=== PATIENT | female | born 1980 | race Caucasian/White ===

== ENCOUNTER 2023-05-29 16:32 | Inpatient (IN) | payer BC, OTHER ==
[~2023-05-29] VITALS: Ht 170.2 cm; Wt 89.4 kg
[2023-05-29] MEDS ORDERED: insulin SQ (20:52)
[2023-05-29] MEDS ORDERED: METF-1211 PO (20:52)
[2023-05-29 21:26] LABS: COVID AG,FIA SOURCE NASAL SWAB
[2023-05-29 21:35] LABS: EOSINOPHILS % (AUTO) 1.4 % (1.0-6.0); HEMATOCRIT 42.4 % (36-46); HEMOGLOBIN 14.2 g/dL (12.0-16.0); LYMPHOCYTES # (AUTO) 2.4 K/uL (1.0-4.8); LYMPHOCYTES % (AUTO) 20.2 % (22.0-44.0); MEAN CORPUSCULAR HEMOGLOBIN 29.8 pg (26.0-34.0); MEAN CORPUSCULAR HGB CONC 33.5 G/dL (31.0-37.0); MEAN CORPUSCULAR VOLUME 89 fL (80-100); MONOCYTES # (AUTO) 0.6 K/uL (0.1-1.0); MONOCYTES % (AUTO) 5.1 % (2.0-9.0); NEUTROPHILS # (AUTO) 8.5 K/uL (1.8-7.7); NEUTROPHILS % (AUTO) 72.3 % (40.0-70.0); PLATELET COUNT (AUTO) 340 K/uL (150-450); RED BLOOD CELL COUNT(AUTO) 4.76 MIL/uL (4.00-5.20); WHITE BLOOD COUNT (AUTO) 11.8 K/uL (4.5-11.0)
[2023-05-29 21:37] LABS: ALCOHOL, URINE DRUG SCREEN NEGATIVE (NEGATIVE); AMPHET/METH SCREEN,URINE POSITIVE (NEGATIVE); BARBITURATE SCREEN, URINE NEGATIVE (NEGATIVE); BENZODIAZEPINES SCREEN,URINE NEGATIVE (NEGATIVE); CANNABINOID SCREEN,URINE NEGATIVE (NEGATIVE); COCAINE SCREEN,URINE NEGATIVE (NEGATIVE); METHADONE SCREEN, URINE NEGATIVE (NEGATIVE); OPIATE SCREEN,URINE NEGATIVE (NEGATIVE); PHENCYCLIDINE SCREEN,URINE NEGATIVE (NEGATIVE)
[2023-05-29 21:46] LABS: ANION GAP 4 mmol/L (8-16); CALCIUM, TOTAL 8.9 mg/dL (8.8-10.5); CARBON DIOXIDE 31 mmol/L (22-29); CHLORIDE 98 mmol/L (98-107); CREATININE 0.57 mg/dL (0.60-1.30); GLOMERULAR FILTR. RATE CALC > 60 mL/min (>60); GLUCOSE,RANDOM 295 mg/dL (70-110); POTASSIUM 4.1 mmol/L (3.5-5.1); SODIUM SERUM 133 mmol/L (136-145); UREA NITROGEN, BLOOD 11 mg/dL (7-18)
[2023-05-29 21:48] LABS: ALCOHOL, BLOOD (SERUM) < 3 mg/dL (0-10)
[2023-05-29 21:48] LABS: SARS-COV2 (COVID) ANTIGEN,FIA Negative (Negative)
[2023-05-29 21:57] LABS: ALANINE AMINOTRANSFERASE 16 U/L (12-78); ALKALINE PHOSPHATASE 177 U/L (46-116); ASPARTATE AMINOTRANSFERASE 10 U/L (15-37); BILIRUBIN,TOTAL 0.5 mg/dL (0.1-1.0); HCG,QUANTITATIVE < 1 mIU/mL (0-6); TOTAL PROTEIN, SERUM 6.8 g/dL (6.4-8.2)
[2023-05-29 22:21] LABS: GLUCOMETER DEV NAME(LOC) ERT.5; GLUCOSE,POINT OF CARE 278 MG/DL (70-110)
[2023-05-29] MEDS ORDERED: LOPERAMIDE HCL 2 MG/15 ML SUSPENSION UDCUP PO PRN (22:30)
[2023-05-29] MEDS ORDERED: LORazepam 1 MG TABLET PO PRN (22:30)
[2023-05-29] MEDS ORDERED: IBUPROFEN 600 MG TABLET PO PRN (22:30)
[2023-05-29] MEDS ORDERED: HydrOXYzine PAMOATE 50 MG CAPSULE PO PRN (22:30)
[2023-05-29] MEDS ORDERED: CloNIDine HCL 0.1 MG TABLET PO PRN ×2 (22:30)
[2023-05-29] MEDS ORDERED: BISACODYL 10 MG RECTAL RECTAL SUPPOSITORY PR PRN (22:30)
[2023-05-29] MEDS ORDERED: TraZODone HCL 50 MG TABLET PO PRN (22:30)
[2023-05-29] MEDS ORDERED: IPRATROPIUM BROMIDE 0.5 MG/2.5 ML NEB SOLUTION NEB PRN (22:30)
[2023-05-29] MEDS ORDERED: BACLOFEN 10 MG TABLET PO PRN (22:30)
[2023-05-29] MEDS ORDERED: ACETAMINOPHEN 325 MG TABLET PO PRN (22:30)
[2023-05-29] MEDS ORDERED: DEXTROSE 50%-WATER 25 GM/50 ML SYRINGE IVP PRN (22:30)
[2023-05-29] MEDS ORDERED: MAG HYDROX/AL HYDROX/SIMETH ES 30 ML SUSPENSION UDCUP PO PRN ×2 (22:30)
[2023-05-29] MEDS ORDERED: PROMETHAZINE HCL 25 MG TABLET PO PRN (22:30)
[2023-05-29] MEDS ORDERED: MAGNESIUM HYDROXIDE SUSPENSION 30 ML UDCUP PO PRN (22:30)
[2023-05-29] MEDS ORDERED: ALBUTEROL SULFATE 2.5 MG/0.5 ML NEB SOLUTION NEB PRN (22:30)
[2023-05-29] MEDS ORDERED: DICYCLOMINE HCL 10 MG CAPSULE PO PRN (22:30)
[2023-05-29] MEDS ORDERED: ONDANSETRON HCL 4 MG/2 ML VIAL IVP PRN (22:30)
[2023-05-30] MEDS: SODIUM CHLORIDE 0.45% 1,000 ML IV SCH ×2 (00:17→11:26)
[2023-05-30] MEDS: HEPARIN SODIUM,PORCINE 5,000 UNITS/ML VIAL SQ SCH ×4 (00:18→23:09)
[2023-05-30 00:25] VITALS: BP 141/79; PULSE 90; RESP 20; TEMP 98.2
[2023-05-30] MEDS: ZOLPIDEM TARTRATE 5 MG TABLET PO PRN (00:33)
[2023-05-30 01:25] VITALS: BP 121/83; PULSE 99; RESP 18; TEMP 98.7
[2023-05-30 02:56] VITALS: BP 146/79; PULSE 95; RESP 20; TEMP 97.6
[2023-05-30 03:46] VITALS: BP 140/75; PULSE 92; RESP 18; TEMP 97.7
[2023-05-30] MEDS: CloNIDine HCL 0.1 MG TABLET PO SCH ×4 (05:56→20:31)
[2023-05-30] MEDS: INSULIN LISPRO 100 UNITS/ML SQ PRN ×4 (06:03→20:32)
[2023-05-30] MEDS: DOCUSATE SODIUM 100 MG CAPSULE PO SCH ×2 (08:55→20:31)
[2023-05-30] MEDS: PANTOPRAZOLE SODIUM 40 MG/VIAL IVP SCH (08:55)
[2023-05-30 09:07] VITALS: BP 141/86; PULSE 91; RESP 18
[2023-05-30 11:36] LABS: GLUCOMETER DEV NAME(LOC) 6N.2B; GLUCOSE,POINT OF CARE 264 MG/DL (70-110)
[2023-05-30] MEDS: ACETAMINOPHEN 325 MG TABLET PO PRN (20:31)
[2023-05-30 20:36] VITALS: BP 125/76; PULSE 82; RESP 17; TEMP 99
[2023-05-31 00:21] LABS: GLUCOMETER DEV NAME(LOC) 6S.2; GLUCOSE,POINT OF CARE 257 MG/DL (70-110)
[2023-05-31 00:21] LABS: GLUCOMETER DEV NAME(LOC) 6S.2; GLUCOSE,POINT OF CARE 144 MG/DL (70-110)
[2023-05-31 00:22] LABS: GLUCOMETER DEV NAME(LOC) 6N.2B; GLUCOSE,POINT OF CARE 292 MG/DL (70-110)
[2023-05-31] MEDS: SODIUM CHLORIDE 0.45% 1,000 ML IV SCH (01:03)
[2023-05-31] MEDS: CloNIDine HCL 0.1 MG TABLET PO SCH ×5 (05:44→21:15)
[2023-05-31 05:45] VITALS: BP 141/78; PULSE 80; RESP 18; TEMP 98.2
[2023-05-31] MEDS: INSULIN LISPRO 100 UNITS/ML SQ PRN ×4 (05:45→21:12)
[2023-05-31 06:56] LABS: BASOPHILS % (AUTO) 0.6 % (0.0-2.0); EOSINOPHILS % (AUTO) 1.6 % (1.0-6.0); HEMATOCRIT 39.2 % (36-46); HEMOGLOBIN 13.3 g/dL (12.0-16.0); LYMPHOCYTES # (AUTO) 2.7 K/uL (1.0-4.8); LYMPHOCYTES % (AUTO) 31.5 % (22.0-44.0); MEAN CORPUSCULAR HEMOGLOBIN 30.1 pg (26.0-34.0); MEAN CORPUSCULAR HGB CONC 33.8 G/dL (31.0-37.0); MEAN CORPUSCULAR VOLUME 89 fL (80-100); MONOCYTES # (AUTO) 0.5 K/uL (0.1-1.0); MONOCYTES % (AUTO) 5.5 % (2.0-9.0); NEUTROPHILS # (AUTO) 5.2 K/uL (1.8-7.7); NEUTROPHILS % (AUTO) 60.8 % (40.0-70.0); PLATELET COUNT (AUTO) 287 K/uL (150-450); RED CELL DISTRIBUTION WIDTH 13.9 % (11.5-14.5); WHITE BLOOD COUNT (AUTO) 8.6 K/uL (4.5-11.0)
[2023-05-31 07:13] LABS: ALANINE AMINOTRANSFERASE 16 U/L (12-78); ALBUMIN 2.3 g/dL (3.4-5.0); ALKALINE PHOSPHATASE 132 U/L (46-116); ASPARTATE AMINOTRANSFERASE 10 U/L (15-37); BILIRUBIN,TOTAL 0.4 mg/dL (0.1-1.0); CALCIUM, TOTAL 8.3 mg/dL (8.8-10.5); CARBON DIOXIDE 28 mmol/L (22-29); CHLORIDE 102 mmol/L (98-107); CREATININE 0.53 mg/dL (0.60-1.30); GLOMERULAR FILTR. RATE CALC > 60 mL/min (>60); GLUCOSE,RANDOM 261 mg/dL (70-110); TOTAL PROTEIN, SERUM 6.1 g/dL (6.4-8.2); UREA NITROGEN, BLOOD 9 mg/dL (7-18)
[2023-05-31] MEDS: HEPARIN SODIUM,PORCINE 5,000 UNITS/ML VIAL SQ SCH ×3 (07:54→23:15)
[2023-05-31] MEDS: PANTOPRAZOLE SODIUM 40 MG/VIAL IVP SCH (07:54)
[2023-05-31] MEDS: DOCUSATE SODIUM 100 MG CAPSULE PO SCH ×2 (07:54→21:08)
[2023-05-31] MEDS: INSULIN GLARGINE,HUM.REC.ANLOG 100 UNITS/ML SQ SCH ×2 (07:55→21:13)
[2023-05-31 07:58] LABS: ANION GAP 6 mmol/L (8-16); POTASSIUM 3.8 mmol/L (3.5-5.1); SODIUM SERUM 136 mmol/L (136-145)
[2023-05-31 09:16] VITALS: BP 112/59; PULSE 86; RESP 19; TEMP 98.1
[2023-05-31 12:12] VITALS: BP 114/69; PULSE 87
[2023-05-31] MEDS: NICOTINE 21 MG/24 HOUR PATCH TD SCH (12:19)
[2023-05-31 12:24] VITALS: BP 124/71; PULSE 88
[2023-05-31 16:50] VITALS: BP 131/70; PULSE 88; RESP 18; TEMP 98
[2023-05-31 19:35] VITALS: BP 100/63; PULSE 83; RESP 18; TEMP 98.3
[2023-05-31] MEDS: IBUPROFEN 600 MG TABLET PO PRN (21:04)
[2023-06-01 01:01] LABS: GLUCOMETER DEV NAME(LOC) 6N.1B; GLUCOSE,POINT OF CARE 286 MG/DL (70-110)
[2023-06-01 01:01] LABS: GLUCOMETER DEV NAME(LOC) 6N.1B; GLUCOSE,POINT OF CARE 325 MG/DL (70-110)
[2023-06-01 01:02] LABS: GLUCOMETER DEV NAME(LOC) 6S.1B; GLUCOSE,POINT OF CARE 310 MG/DL (70-110)
[2023-06-01 04:50] VITALS: BP 148/91; PULSE 79; RESP 20; TEMP 98.5
[2023-06-01] MEDS: CloNIDine HCL 0.1 MG TABLET PO SCH (06:01)
[2023-06-01] MEDS: INSULIN LISPRO 100 UNITS/ML SQ PRN ×4 (06:07→21:16)
[2023-06-01 08:01] LABS: GLUCOMETER DEV NAME(LOC) 6S.2; GLUCOSE,POINT OF CARE 241 MG/DL (70-110)
[2023-06-01 08:01] LABS: GLUCOMETER DEV NAME(LOC) 6S.2; GLUCOSE,POINT OF CARE 231 MG/DL (70-110)
[2023-06-01] MEDS: DOCUSATE SODIUM 100 MG CAPSULE PO SCH ×2 (08:05→21:10)
[2023-06-01] MEDS: PANTOPRAZOLE SODIUM 40 MG/VIAL IVP SCH (08:06)
[2023-06-01] MEDS: NICOTINE 21 MG/24 HOUR PATCH TD SCH (08:06)
[2023-06-01] MEDS: INSULIN GLARGINE,HUM.REC.ANLOG 100 UNITS/ML SQ SCH (08:07)
[2023-06-01] MEDS: HEPARIN SODIUM,PORCINE 5,000 UNITS/ML VIAL SQ SCH ×3 (08:07→23:38)
[2023-06-01 09:21] VITALS: BP 94/53; PULSE 84; RESP 20; TEMP 98.7
[2023-06-01] MEDS ORDERED: INSLAN SQ (10:58)
[2023-06-01] MEDS ORDERED: NICO-803 TD (10:59)
[2023-06-01] MEDS ORDERED: ACET-2247 PO (11:00)
[2023-06-01] MEDS ORDERED: MAG30ORA19 PO (11:01)
[2023-06-01] MEDS ORDERED: MAGN-169 PO (11:02)
[2023-06-01] MEDS: IBUPROFEN 600 MG TABLET PO PRN (13:17)
[2023-06-01] MEDS: ACETAMINOPHEN 325 MG TABLET PO PRN ×2 (16:38→21:16)
[2023-06-01 18:36] LABS: GLUCOMETER DEV NAME(LOC) 6S.1B; GLUCOSE,POINT OF CARE 250 MG/DL (70-110)
[2023-06-01 18:36] LABS: GLUCOMETER DEV NAME(LOC) 6S.1B; GLUCOSE,POINT OF CARE 350 MG/DL (70-110)
[2023-06-01 19:10] VITALS: BP 130/62; PULSE 81; RESP 20; TEMP 98.1
[2023-06-01 20:34] VITALS: BP 126/58; PULSE 78; RESP 20; TEMP 98.1
[2023-06-01] MEDS ORDERED: INSULIN GLARGINE,HUM.REC.ANLOG 100 UNITS/ML SQ SCH (21:00)
[2023-06-01] MEDS: ZOLPIDEM TARTRATE 5 MG TABLET PO PRN (21:17)
[2023-06-02] MEDS: IBUPROFEN 600 MG TABLET PO PRN
[2023-06-02 04:33] VITALS: BP 141/86; PULSE 84; RESP 20; TEMP 97.7
[2023-06-02] MEDS: INSULIN LISPRO 100 UNITS/ML SQ PRN (06:07)
[2023-06-03 09:26] LABS: GLUCOMETER DEV NAME(LOC) 6S.2; GLUCOSE,POINT OF CARE 270 MG/DL (70-110)
[2023-06-03 09:26] LABS: GLUCOMETER DEV NAME(LOC) 6S.2; GLUCOSE,POINT OF CARE 241 MG/DL (70-110)
== END 2023-06-02 07:11 | DRG 897 ==
LOC: EMS 16:33 → 6S 23:00
PROVIDERS: ADMIT Hospitalist; ATTEND Hospitalist
DX: F11.13 Opioid abuse with withdrawal (principal); R45.851 Suicidal ideations; E11.51 Type 2 diabetes mellitus with diabetic peripheral angiopathy without gangrene; E11.40 Type 2 diabetes mellitus with diabetic neuropathy, unspecified; F32.A Depression, unspecified; F15.10 Other stimulant abuse, uncomplicated; F19.10 Other psychoactive substance abuse, uncomplicated; Z68.30 Body mass index [BMI] 30.0-30.9, adult; E66.9 Obesity, unspecified; F17.200 Nicotine dependence, unspecified, uncomplicated; F15.13 Other stimulant abuse with withdrawal; M06.9 Rheumatoid arthritis, unspecified; Z20.822 Contact with and (suspected) exposure to COVID-19; Z79.4 Long term (current) use of insulin
CPT/HCPCS: 80053; 80307; 82962; 84702; 85025; 93005; 99285; C9113; G0480; J1644; J1815

== ENCOUNTER 2025-02-24 13:44 | Emergency (ER) | payer OTHER ==
[~2025-02-24] VITALS: Ht 170.2 cm; Wt 77.3 kg
[~2025-02-24 13:44] MED LIST: ACET-2247 PO; INSLAN SQ; MAG30ORA19 PO; MAGN-169 PO; NICO-803 TD
[2025-02-24] MEDS ORDERED: MELO-107 PO (14:09)
[2025-02-24] MEDS ORDERED: INSLAN SQ (14:09)
[2025-02-24] MEDS ORDERED: CALC-261 PEG (14:09)
[2025-02-24] MEDS ORDERED: SEMA0.258 SQ (14:09)
[2025-02-24] MEDS ORDERED: INSREG SQ (14:09)
[2025-02-24] MEDS ORDERED: TRAZ-252 PO (14:09)
[2025-02-24] MEDS ORDERED: LISI-893 PO (14:09)
[2025-02-24 14:11] VITALS: BP 136/94; PULSE 96; RESP 18; TEMP 98.7; O2SAT 98
[2025-02-24 15:06] LABS: GLUCOMETER DEV NAME(LOC) ER.7; GLUCOSE,POINT OF CARE 148 MG/DL (70-110)
== END 2025-02-24 16:47 | disposition home or self-care (01) ==
LOC: EMS 13:46
DX: G89.29 Other chronic pain (principal); M79.671 Pain in right foot; E11.9 Type 2 diabetes mellitus without complications; F32.A Depression, unspecified; F17.210 Nicotine dependence, cigarettes, uncomplicated; Z88.0 Allergy status to penicillin
CPT/HCPCS: 82962; 99282

== ENCOUNTER 2025-04-22 16:52 | Emergency (ER) | payer OTHER ==
[~2025-04-22] VITALS: Ht 170.2 cm; Wt 97.3 kg
[~2025-04-22 16:52] MED LIST changes: -ACET-2247 PO; +CALC-261 PEG; +INSREG SQ; +LISI-893 PO; -MAG30ORA19 PO; -MAGN-169 PO; +MELO-107 PO; -NICO-803 TD; +SEMA0.258 SQ; +TRAZ-252 PO
[2025-04-22 16:57] VITALS: TEMP 97.7
[2025-04-22] MEDS ORDERED: SEMA2PEN SQ (17:05)
[2025-04-22] MEDS ORDERED: BUPR1TAB46 SL (17:05)
[2025-04-22 17:25] LABS: GLUCOMETER DEV NAME(LOC) ER.7; GLUCOSE,POINT OF CARE 194 MG/DL (70-110)
[2025-04-22 17:31] LABS: PLATELET COUNT (AUTO) 260 K/uL (150-450); RED BLOOD CELL COUNT(AUTO) 4.64 MIL/uL (4.00-5.20); RED CELL DISTRIBUTION WIDTH 15.1 % (11.5-14.5); WHITE BLOOD COUNT (AUTO) 10.6 K/uL (4.5-11.0)
[2025-04-22 17:35] LABS: CALCIUM, TOTAL 8.8 mg/dL (8.8-10.5); CREATININE 0.57 mg/dL (0.60-1.30); GLOMERULAR FILTR. RATE CALC > 60 mL/min (>60); GLUCOSE,RANDOM 218 mg/dL (70-110); SODIUM SERUM 139 mmol/L (136-145); UREA NITROGEN, BLOOD 10 mg/dL (7-18)
[2025-04-22 17:36] VITALS: BP 154/83; PULSE 89; RESP 18; O2SAT 98
[2025-04-22 17:47] LABS: TROPONIN I-HIGH SENSITIVITY 5 ng/L (<51)
== END 2025-04-22 18:03 | disposition home or self-care (01) ==
LOC: EMS 16:52
DX: I10 Essential (primary) hypertension (principal); E11.9 Type 2 diabetes mellitus without complications; F32.A Depression, unspecified; R06.02 Shortness of breath; Z79.85 Long-term (current) use of injectable non-insulin antidiabetic drugs; Z88.0 Allergy status to penicillin; Z79.891 Long term (current) use of opiate analgesic; Z79.899 Other long term (current) drug therapy
CPT/HCPCS: 80048; 82962; 83880; 84484; 84703; 85025; 93005; 99284